=== PATIENT | male | born 1935 | race Hispanic/Latino ===

== ENCOUNTER 2017-02-09 17:16 | Inpatient (IN) | payer MEDICAID, MEDICARE, OTHER ==
[2017-02-09] MEDS ORDERED: Acetaminophen 325 MG TAB PO PRN (18:13)
[2017-02-09] MEDS ORDERED: Bisacodyl 5 MG TAB PO PRN (18:13)
[2017-02-09] MEDS ORDERED: Dextrose 5% in Water 1,000 ML IV PRN (18:16)
[2017-02-09] MEDS ORDERED: Dextrose 50% Abboject 50 ML SYRINGE SLOW IVP PRN (18:16)
[2017-02-09 18:38] LABS: Hematocrit 29.5 % (42.0-52.0); Mean Platelet Volume 8.3 fL (7.4-10.4); Red Blood Cell (RBC) Count 2.73 mill/uL (4.70-6.10); White Blood Cell (WBC) Count 6.1 thou/uL (4.8-10.8)
[2017-02-09 18:53] LABS: ALT (SGPT) 50 U/L (8-55); AST (SGOT) 32 U/L (5-34); Alkaline Phosphatase 91 U/L (40-150); Anion Gap 17 mmol/L (10-20); BUN (Urea Nitrogen) 97 mg/dL (8.4-25.7); Bilirubin, Total 0.6 mg/dL (0.2-1.2); Calc. Creatinine Clearance 0 mL/min (70-130); Calcium 9.3 mg/dL (7.8-10.44); Carbon Dioxide 20 mmol/L (23-31); Chloride 105 mmol/L (98-107); Estimated GFR-MDRD 8; Globulin 3.7 g/dL (2.4-3.5); Protein, Total 6.9 g/dL (5.8-8.1)
[2017-02-09 18:58] LABS: #Eosinphils 0.3 thou/uL (0.0-0.7); #Lymphocytes 1.1 thou/uL (1.20-3.40); #Monocytes 0.4 thou/uL (0.11-0.59); #Neutrophils 4.4 thou/uL (1.40-6.50); %Basophils 0.7 % (0.0-1.0); %Eosinophils 4.1 % (0.0-10.0); %Lymphocytes 17.3 % (21.0-51.0); %Monocytes 5.6 % (0.0-10.0)
--- NOTE | 2017-02-09 19:00 | HP ---
PRIMARY CARE PHYSICIAN: Dr. Clifford Carey. CHIEF COMPLAINT: Elevated creatinine. HISTORY OF PRESENT ILLNESS: Mr. Doran is a pleasant 81-year-old gentleman who is a resident of [facility], who was sent to the emergency room from the [facility] because of abnormal labs. He denies any chest pain or shortness of breath. He reports that he has not been eating as well as he should. He reports that he has some difficulty accessing his wash room. The patient provides conflicting history at different times, history is unreliable. Collateral history was obtained from review of medical records as well as discussion with the emergency room physician. The patient appears to have been started on clindamycin and Bactrim for cellulitis on 02/05/2017. REVIEW OF SYSTEMS: The following complete review of systems was negative, unless otherwise mentioned in the HPI or below: CONSTITUTIONAL: Weight loss or gain, sense of well-being, ability to conduct usual activities, exercise tolerance. SKIN/BREAST: Rash, itching, changes in hair growth or loss, nail changes, breast lumps, tenderness, swelling, nipple discharge. EYES: Vision, double vision, tearing, blind spots, pain. ENT/MOUTH: Headaches (location, time of onset, duration, precipitating factors) , vertigo, lightheadedness, injury. Vision, double vision, tearing, blind spots , pain, nose bleeding, colds, obstruction, discharge, dental difficulties, gingival bleeding, dentures, neck stiffness, pain, tenderness, masses in thyroid or other areas. CARDIOVASCULAR: Precordial pain, substernal distress, palpitations, syncope, dyspnea on exertion, orthopnea, nocturnal paroxysmal dyspnea, edema, cyanosis, hypertension, heart murmurs, varicosities, phlebitis, claudication. RESPIRATORY: Pain, shortness of breath, wheezing, stridor, cough, hemoptysis, fever or night sweats GASTROINTESTINAL: Poor appetite, dysphagia, indigestion, abdominal pain, heartburn, eructation, nausea, vomiting, hematemesis, jaundice, constipation, or diarrhea, abnormal stools (bobby-colored, tarry, bloody, greasy, foul smelling ), flatulence, hemorrhoids, recent changes in bowel habits. GENITOURINARY: Urgency, frequency, dysuria, nocturia, hematuria, polyuria, oliguria, unusual (or change in) color of urine, stones, hesitancy, change in size of stream, dribbling, acute retention or incontinence, libido, potency. MUSCULOSKELETAL: Pain, swelling, redness or heat of muscles or joints, limitation, of motion, muscular weakness, atrophy, cramps. NEUROLOGIC/PSYCHIATRIC: Convulsions, paralyses, tremor, incoordination, paresthesias, difficulties with memory of speech, sensory or motor disturbances , or muscular coordination (ataxia, tremor), emotional problems, anxiety, depression, previous psychiatric care, unusual perceptions, hallucinations. ALLERGY/IMMUNOLOGIC: Skin rash, anemia, bleeding tendency, polydipsia, polyuria , intolerance to heat or cold. PAST MEDICAL HISTORY: Significant for dementia, diabetes mellitus type 2, and hypertension. PAST SURGICAL HISTORY: Unable to elicit. PSYCHIATRIC HISTORY: Significant for depression and bipolar disorder. FAMILY HISTORY: Unable to elicit. CODE STATUS: I could not discuss CODE STATUS with him. This will need to be addressed. ALLERGIES: No known drug allergies. CURRENT MEDICATIONS: Include clindamycin 300 mg every 6 hours, Prozac 20 mg daily, metformin 500 mg 2 times a day, multivitamins 1 tablet daily, risperidone 0.25 mg 2 times a day, Motrin 400 mg 4 times a day for 7 days, Bactrim 1 tablet 2 times a day. PHYSICAL EXAMINATION: GENERAL: Mr. Doran is awake and alert, not in acute distress. VITAL SIGNS: Blood pressure is 139/64, pulse is 71. He is breathing at rate of 20 and saturating 96% on room air. He is afebrile. EYES: No scleral icterus. No conjunctival pallor. ENT: Dry mucosal membranes, no oropharyngeal erythema or exudates. NECK: Supple, nontender, normal range of movement, trachea is midline. RESPIRATORY: Accessory muscles of breathing are not active. Chest wall movements are symmetric bilaterally. LUNGS: Clear to auscultation without wheeze, rhonchi or crepitations. ABDOMEN: Soft, nontender, bowel sounds are heard, no hepatomegaly, no splenomegaly. NEUROLOGIC: Cranial nerves II-XII are intact. Deep tendon reflexes are 2+. SKIN: No rashes or subcutaneous nodules. Multiple tattoos present. MUSCULOSKELETAL: He has a splint over his left wrist. He reports that is for gout. Power is 5/5 in all 4 extremities. LYMPHATIC: No cervical lymphadenopathy. PSYCHIATRIC: Normal mood, normal affect, patient is oriented to person and place, not to time. Mr. Doran's labs and investigations were reviewed. Laboratory investigations were ordered by the emergency room, physician are pending. Review of the blood work from [facility] shows that on 02/08/2017, he had sodium 139, potassium 5.1, anion gap elevated at 22, decreased calcium of 8.5, elevated blood urea nitrogen of 75, elevated creatinine of 5.0, decreased albumin of 2.8 , elevated ALT of 57, normal total bilirubin, normal AST, normal alkaline phosphatase. Hemoglobin A1c was 5.6. ASSESSMENT AND PLAN: Mr. Doran is a pleasant 81-year-old gentleman, who was seen at [facility] on 02/09/2017. His problem list includes: 1. Acute renal failure: Mr. Doran appears to be presenting with acute renal failure, likely multifactorial, given his use of nonsteroidal anti-inflammatory agents and poor oral intake. Bactrim may have contributed to the elevated creatinine as well. This may have been worsened by his concomitant use of metformin. He will be admitted to the hospital. Nephrotoxic medications will be on hold. He will receive intravenous hydration. Nephrology Service is being consulted for their opinion and help with further management. 2. Dementia: Appears to be stable at this time. 3. Diabetes mellitus. Hold metformin, start Accu-Cheks and insulin sliding scale. 4. Hypertension: Monitor vital signs, titrate antihypertensives as needed. 5. History of cellulitis: This appears to have resolved. We will stop antibiotics. Many thanks for allowing me to participate in your patient's care. Please feel free to contact me with any questions or concerns. LEVEL OF RISK: Moderate. LEVEL OF COMPLEXITY: Moderate. MTDD
--- NOTE | 2017-02-09 19:37 | CON ---
DATE OF CONSULTATION: 02/09/2017 REASON FOR CONSULTATION: Elevated creatinine. HISTORY OF PRESENT ILLNESS: This is a very pleasant 81-year-old gentleman with a baseline creatinine of 1.1 in 12/12, presented to the hospital with altered mental status and a creatinine of 5. The pa herminio denies no headache, numbness, tingling or weakness. Denies any nausea, vomiting or chest pain. The patient was recently treated with clindamycin and Bactrim. The patient has had history of poor ly controlled diabetes mellitus. 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 HOME MEDICATIONS: List reviewed. HOSPITAL MEDICATIONS: List reviewed. ALLERGIES: Reviewed. FAMILY HISTORY: Negative for ESRD. SOCIAL HISTORY: No drug use. REVIEW OF SYSTEMS: Fifteen point review of systems was performed and negative except for positives n oted above. General: Weakness. Head: Headache. Neck: No swelling or lumps. Nose: No epistaxis or discharge . Eyes: No diplopia or pain. Respiratory: Dyspnea. Cardiovascular: Chest pain. Gastrointestina l: Nausea. /[employer]: Hematuria. Musculoskeletal: No joint pain. Neuropsychiatic systems: No suic idal ideation. No ideation. Skin: Denies any rash or ulcer. Constitutional: No fever or chills. PHYSICAL EXAMINATION: GENERAL: Patient is awake, alert. VITAL SIGNS: Afebrile, pulse 75, breathing at 16, blood pressure was 130/70. GENERAL APPEARANCE AND MENTAL STATUS: Fair. HEAD/NECK: Normocephalic. Atraumatic. EYES: EOMI. No deformity. EARS: Clear. No ulcers. NOSE: Intact. No lesions. MOUTH: Clear. No discharge. THROAT: Clear. No exudate. LUNGS: Clear. No crackles. CARDIAC: S1, S2. No rub. ABDOMEN: Benign. BS+. GENITALIA/RECTUM: Castellano absent. BACK/EXTREMITIES: Edema 0+ Ulcer- NEUROLOGICAL: Alert and motor intact. SKIN: Rash- Bruise- LYMPHATICS: Edema- Ulcer- LABORATORY DATA: Creatinine 5, potassium is normal. ASSESSMENT AND RECOMMENDATIONS: 1. Stage V chronic kidney disease with acute kidney failure. Would recommend hydration. Would hold Bactrim. Can use Cipro. 2. Anemia, stable. 3. Medications based on glomerular filtration rate are appropriate. No indication for dialysis at t his time. We will follow the patient's renal function closely and order renal imaging.
[2017-02-09] MEDS: Heparin 5,000 UNITS/ML VIAL SC SCH (21:21)
[2017-02-09] MEDS: Sodium Chloride 0.9% 1,000 ML IV SCH (21:21)
[2017-02-10 00:10] VITALS: BMI 27.9
[2017-02-10 05:37] LABS: #Eosinphils 0.2 thou/uL (0.0-0.7); #Monocytes 0.5 thou/uL (0.11-0.59); #Neutrophils 4.1 thou/uL (1.40-6.50); %Basophils 0.5 % (0.0-1.0); %Eosinophils 4.2 % (0.0-10.0); %Monocytes 7.8 % (0.0-10.0); Hematocrit 28.8 % (42.0-52.0); Mean Platelet Volume 8.5 fL (7.4-10.4); Red Blood Cell (RBC) Count 2.63 mill/uL (4.70-6.10); White Blood Cell (WBC) Count 5.8 thou/uL (4.8-10.8)
[2017-02-10] MEDS: Sodium Chloride 0.9% 1,000 ML IV SCH (06:38)
[2017-02-10] MEDS: Insulin Regular 300 UNITS/3 ML VIAL SC PRN (06:39)
[2017-02-10 06:45] LABS: Anion Gap 17 mmol/L (10-20); BUN (Urea Nitrogen) 84 mg/dL (8.4-25.7); Calc. Creatinine Clearance 13 mL/min (70-130); Calcium 8.6 mg/dL (7.8-10.44); Carbon Dioxide 16 mmol/L (23-31); Chloride 109 mmol/L (98-107); Estimated GFR-MDRD 9
[2017-02-10] MEDS: Heparin 5,000 UNITS/ML VIAL SC SCH ×3 (07:55→20:38)
[2017-02-10] MEDS: Albuterol Sulfate 1.25 MG/3 ML NEB NEB SCH ×2 (08:45→09:07)
[2017-02-10] MEDS ORDERED: FLU VACC TS2017-18 (>65YR) 0.5 ML SYRINGE IM ONE (09:00)
[2017-02-10] MEDS: Albuterol Sulfate 2.5 mg/3 ml Neb NEB SCH ×3 (09:25→11:49)
[2017-02-10] MEDS: Albuterol Sulfate 2.5 mg/0.5 ml Neb NEB SCH ×3 (09:25→11:48)
[2017-02-10] MEDS ORDERED: Albuterol Sulfate 1.25 MG/3 ML NEB NEB SCH (09:30)
--- NOTE | 2017-02-10 11:02 | PRG ---
DATE OF SERVICE: 02/10/2017 SUBJECTIVE: An 81-year-old gentleman being seen for acute kidney injury. The patient denies any judah sea, vomiting or chest pain. PHYSICAL EXAMINATION: GENERAL: Patient is awake and alert. VITAL SIGNS: Afebrile, pulse 111, breathing at 16, blood pressure 122/66. HEAD/NECK: Normocephalic. Atraumatic. EYES: EOMI. No deformity. EARS: Clear. No ulcers. NOSE: Intact. No lesions. MOUTH: Clear. No discharge. THROAT: Clear. No exudate. LUNGS: Clear. No crackles. CARDIAC: S1, S2. No rub. ABDOMEN: Benign. BS+. GENITALIA/RECTUM: Castellano absent. BACK/EXTREMITIES: Edema 0+ Ulcer- NEUROLOGICAL: Alert and motor intact. SKIN: Rash- Bruise- LYMPHATICS: Edema- Ulcer- LABORATORY DATA: Show hemoglobin 9.4, potassium 5.8, creatinine 5.74. ASSESSMENT AND RECOMMENDATIONS: 1. Acute kidney injury, improving. Continue hydration. 2. Metabolic acidosis. We will add sodium bicarbonate. 3. Anemia, stable. 4. Medications based on glomerular filtration rate are appropriate. No urgent indication for dialys is. I will order renal imaging.
[2017-02-10 11:28] LABS: Anion Gap 17 mmol/L (10-20); BUN (Urea Nitrogen) 78 mg/dL (8.4-25.7); Calc. Creatinine Clearance 14 mL/min (70-130); Calcium 8.9 mg/dL (7.8-10.44); Carbon Dioxide 17 mmol/L (23-31); Chloride 111 mmol/L (98-107); Estimated GFR-MDRD 11
--- NOTE | 2017-02-10 11:30 | PDOC.PN ---
- Subjective Encounter Start Date: 02/10/17 Encounter Start Time: 08:20 Pt seen for followup re: LOU. Denies chest pain, shortness of breath, fevers or chills. - Objective MAR Reviewed: Yes Vital Signs & Weight: Vital Signs (12 hours) Temp Pulse Resp BP BP Pulse Ox 02/10/17 10:43 111 H 18 97 02/10/17 09:25 106 H 18 96 02/10/17 08:00 98.4 F 106 H 18 98 02/10/17 07:56 98.4 F 106 H 18 122/66 96 02/10/17 04:00 97.4 F L 80 20 127/64 95 02/10/17 00:00 97.7 F 84 20 135/56 L 96 Weight Admit Weight 205 lb 14.576 oz Weight 205 lb 14.576 oz I&O: 02/09/17 02/10/17 02/11/17 06:59 06:59 06:59 Intake Total 1590 Output Total 1050 Balance 540 Result Diagrams: 02/10/17 04:03 02/10/17 04:03 Additional Labs: Accuchecks 02/10/17 05:44 POC Glucose 193 H Dx/Plan (1) LOU (acute kidney injury) Code(s): N17.9 - ACUTE KIDNEY FAILURE, UNSPECIFIED Status: Acute (2) Hyperkalemia Code(s): E87.5 - HYPERKALEMIA Status: Acute (3) Metabolic acidosis Code(s): E87.2 - ACIDOSIS Status: Acute (4) DM2 (diabetes mellitus, type 2) Status: Chronic (5) HTN (hypertension) Code(s): I10 - ESSENTIAL (PRIMARY) HYPERTENSION Status: Chronic (6) Dementia Code(s): F03.90 - UNSPECIFIED DEMENTIA WITHOUT BEHAVIORAL DISTURBANCE Status: Chronic - Plan PT/OT, out of bed/ambulate, DVT proph w/heparin * . Continue IV fluids. Bicarbonate added by nephrology service. Administer kayexalate, beta agonist nebs andrecheck potassium. Continue accuchecks, insulin. Monitor vital signs, titrate antihypertensives as needed. Review of Systems - Review of Systems Constitutional: Other. negative: Fever, Chills, Sweats, Weakness, Malaise Respiratory: negative: Cough, Dry, Shortness of Breath, Hemoptysis, SOB with Excertion, Pleuritic Pain, Sputum, Wheezing Cardiovascular: negative: Chest Pain, Palpitations, Orthopnea, Paroxysmal Noc. Dyspnea, Edema, Light Headedness Gastrointestinal: negative: Nausea, Vomiting, Abdominal Pain, Diarrhea, Constipation, Melena, Hematochezia Genitourinary: negative: Dysuria, Frequency, Incontinence, Hematuria, Retention - Medications/Allergies Allergies/Adverse Reactions: Allergies Allergy/AdvReac Type Severity Reaction Status Date / Time No Known Drug Allergies Allergy Verified 02/09/17 18:13 Medications: Current Medications Acetaminophen (Tylenol) 650 mg PO Q4H PRN PRN Reason: Headache/Fever or Pain Albuterol Sulfate (Ventolin) 7.5 mg NEB Q1H [facility] Stop: 02/10/17 11:31 Last Admin: 02/10/17 10:43 Dose: 7.5 mg Albuterol Sulfate (Ventolin) 2.5 mg NEB Q1H [facility] Stop: 02/10/17 11:31 Last Admin: 02/10/17 10:43 Dose: 2.5 mg Bisacodyl (Dulcolax) 10 mg PO DAILYPRN PRN PRN Reason: Constipation Dextrose/Water (Dextrose 50%) 25 gm SLOW IVP PRN PRN PRN Reason: Hypoglycemia Glucagon (Glucagon) 1 mg IM PRN PRN PRN Reason: Hypoglycemia Heparin Sodium (Porcine) (Heparin) 5,000 units SC TID [facility] Last Admin: 02/10/17 07:55 Dose: 5,000 units Dextrose/Water (D5w) 1,000 mls @ 0 mls/hr IV .Q0M PRN; As Directed PRN Reason: Hypoglycemia Sodium Bicarbonate 150 meq/ (Dextrose/Water) 1,150 mls @ 100 mls/hr IV .[id number] [facility] Insulin Human Regular (Humulin R) 0 units SC .MILD SLIDING SCALE PRN PRN Reason: Mild Correctional Scale Last Admin: 02/10/17 06:39 Dose: 2 unit
--- NOTE | 2017-02-10 14:19 | ULT ---
BILATERAL RENAL ULTRASOUND: Date: 02/10/17 HISTORY: Acute kidney insufficiency. COMPARISON: None. TECHNIQUE: Sagittal and transverse imaging of kidneys performed. FINDINGS: Bilaterally, no hydronephrosis. There is an anechoic focus in the right renal pelvis likely representing a parapelvic cyst measuring 7.2 x 6.0 x 7.3 cm. Right kidney measures 11.0 x 6.1 x 5.7 cm. Left kidney measures 11.0 x 5.2 x 6.2 cm. Urinary bladder has a pre-void volume of 272 cm2. No mucosal abnormality. IMPRESSION: 1. No hydronephrosis. 2. Right renal cyst. POS: [facility]
[2017-02-10] MEDS: Sodium Bicarbonate 150 MEQ in Dextrose 5% in Water 1,000 ML IV SCH ×2 (14:48)
[2017-02-10] MEDS: risperiDONE 0.25 MG TAB PO SCH (20:38)
[2017-02-10] MEDS ORDERED: Docusate 100 MG CAP PO PRN (21:00)
[2017-02-10] MEDS: Acetaminophen 325 MG TAB PO PRN (23:12)
[2017-02-11] MEDS: HYDROcodone/Acetaminophen 5/325 mg Tablet PO PRN ×2 (01:38→05:28)
[2017-02-11] MEDS: Sodium Bicarbonate 150 MEQ in Dextrose 5% in Water 1,000 ML IV SCH ×6 (01:38→14:53)
[2017-02-11 05:52] LABS: #Eosinphils 0.2 thou/uL (0.0-0.7); #Lymphocytes 1.2 thou/uL (1.20-3.40); #Monocytes 0.5 thou/uL (0.11-0.59); #Neutrophils 3.5 thou/uL (1.40-6.50); %Basophils 0.2 % (0.0-1.0); %Eosinophils 3.7 % (0.0-10.0); %Lymphocytes 22.5 % (21.0-51.0); %Monocytes 8.3 % (0.0-10.0); Hematocrit 25.8 % (42.0-52.0); Mean Platelet Volume 7.9 fL (7.4-10.4); Red Blood Cell (RBC) Count 2.37 mill/uL (4.70-6.10); White Blood Cell (WBC) Count 5.4 thou/uL (4.8-10.8)
[2017-02-11 06:23] LABS: Anion Gap 12 mmol/L (10-20); BUN (Urea Nitrogen) 57 mg/dL (8.4-25.7); Calc. Creatinine Clearance 20 mL/min (70-130); Calcium 8.6 mg/dL (7.8-10.44); Carbon Dioxide 25 mmol/L (23-31); Chloride 106 mmol/L (98-107); Estimated GFR-MDRD 16
[2017-02-11] MEDS: risperiDONE 0.25 MG TAB PO SCH ×2 (07:35→21:05)
[2017-02-11] MEDS: FLUoxetine HCl 20 MG CAP PO SCH (07:35)
[2017-02-11] MEDS: Heparin 5,000 UNITS/ML VIAL SC SCH ×3 (07:35→21:05)
[2017-02-11] MEDS: Multivit, Therapeutic 1 TAB PO SCH (07:35)
--- NOTE | 2017-02-11 11:37 | PDOC.PN ---
- Subjective Encounter Start Date: 02/11/17 Encounter Start Time: 09:00 Pt seen for followup re: LOU. Denies chest pain, shortness of breath, fevers or chills. - Objective MAR Reviewed: Yes Vital Signs & Weight: Vital Signs (12 hours) Temp Pulse Resp BP Pulse Ox 02/11/17 08:00 98.1 F 77 20 148/76 H 96 Weight Admit Weight 205 lb 14.576 oz Weight 205 lb 14.576 oz I&O: 02/10/17 02/11/17 02/12/17 06:59 06:59 06:59 Intake Total 3990 240 Output Total 1050 Balance 2940 240 Result Diagrams: 02/11/17 04:04 02/11/17 04:04 Additional Labs: Accuchecks 02/10/17 02/10/17 15:39 11:29 POC Glucose 268 H 166 H Phys Exam - Physical Examination Constitutional: NAD HEENT: moist MMs Neck: supple Respiratory: clear to auscultation bilateral Cardiovascular: RRR Gastrointestinal: soft Musculoskeletal: pulses present Neurological: moves all 4 limbs Psychiatric: normal affect Dx/Plan (1) LOU (acute kidney injury) Code(s): N17.9 - ACUTE KIDNEY FAILURE, UNSPECIFIED Status: Acute (2) Metabolic acidosis Code(s): E87.2 - ACIDOSIS Status: Acute (3) DM2 (diabetes mellitus, type 2) Status: Chronic (4) HTN (hypertension) Code(s): I10 - ESSENTIAL (PRIMARY) HYPERTENSION Status: Chronic (5) Dementia Code(s): F03.90 - UNSPECIFIED DEMENTIA WITHOUT BEHAVIORAL DISTURBANCE Status: Chronic (6) Hyperkalemia Code(s): E87.5 - HYPERKALEMIA Status: Resolved - Plan PT/OT, out of bed/ambulate, DVT proph w/heparin * . creatinine better. Continue IV fluids. Continue accuchecks, insulin. Monitor vital signs, titrate antihypertensives as needed. Review of Systems - Review of Systems Respiratory: negative: Cough, Dry, Shortness of Breath, Hemoptysis, SOB with Excertion, Pleuritic Pain, Sputum, Wheezing Cardiovascular: negative: Chest Pain, Palpitations, Orthopnea, Paroxysmal Noc. Dyspnea, Edema, Light Headedness - Medications/Allergies Allergies/Adverse Reactions: Allergies Allergy/AdvReac Type Severity Reaction Status Date / Time No Known Drug Allergies Allergy Verified 02/09/17 18:13 Medications: Current Medications Acetaminophen (Tylenol) 650 mg PO Q4H PRN PRN Reason: Fever/Mild Pain Last Admin: 02/10/17 23:12 Dose: 650 mg Bisacodyl (Dulcolax) 10 mg PO DAILYPRN PRN PRN Reason: Constipation Dextrose/Water (Dextrose 50%) 25 gm SLOW IVP PRN PRN PRN Reason: Hypoglycemia Docusate Sodium (Colace) 100 mg PO BID PRN PRN Reason: Constipation Fluoxetine HCl (Prozac) 20 mg PO DAILY [facility] Last Admin: 02/11/17 07:35 Dose: 20 mg Glucagon (Glucagon) 1 mg IM PRN PRN PRN Reason: Hypoglycemia Heparin Sodium (Porcine) (Heparin) 5,000 units SC TID [facility] Last Admin: 02/11/17 07:35 Dose: 5,000 units Dextrose/Water (D5w) 1,000 mls @ 0 mls/hr IV .Q0M PRN; As Directed PRN Reason: Hypoglycemia Sodium Bicarbonate 150 meq/ (Dextrose/Water) 1,150 mls @ 100 mls/hr IV .[id number] [facility] Last Admin: 02/11/17 10:18 Dose: Not Given Insulin Human Regular (Humulin R) 0 units SC .MILD SLIDING SCALE PRN PRN Reason: Mild Correctional Scale Last Admin: 02/10/17 06:39 Dose: 2 unit Multivitamins (Theragran) 1 tab PO DAILY [facility] Last Admin: 02/11/17 07:35 Dose: 1 tab Risperidone (Risperidone) 0.25 mg PO BID [facility] Last Admin: 02/11/17 07:35 Dose: 0.25 mg
--- NOTE | 2017-02-11 12:28 | PRG ---
DATE OF SERVICE: 02/11/2017 SUBJECTIVE: This is an 81-year-old gentleman being seen for acute kidney injury. The patient denies any nausea, vomiting, or chest pain. PHYSICAL EXAMINATION: GENERAL: Patient is awake, alert. VITAL SIGNS: Afebrile, pulse 70, breathing at 16, blood pressure 142/76. GENERAL APPEARANCE AND MENTAL STATUS: Fair. HEAD/NECK: Normocephalic. Atraumatic. EYES: EOMI. No deformity. EARS: Clear. No ulcers. NOSE: Intact. No lesions. MOUTH: Clear. No discharge. THROAT: Clear. No exudate. LUNGS: Clear. No crackles. CARDIAC: S1, S2. No rub. ABDOMEN: Benign. BS+. GENITALIA/RECTUM: Castellano absent. BACK/EXTREMITIES: Edema 0+ Ulcer- NEUROLOGICAL: Alert and motor intact. SKIN: Rash- Bruise- LYMPHATICS: Edema- Ulcer- LABORATORY: Hemoglobin 8.3, creatinine 3.6. ASSESSMENT AND RECOMMENDATIONS: 1. Acute kidney injury, improving. 2. Hypertension, stable. 3. Anemia, stable. 4. Medications based on GFR are appropriate. 5. Metabolic acidosis, improved. No indication for dialysis at this time.
[2017-02-12] MEDS ORDERED: hydrOXYzine 10 MG TAB PO SCH (00:30)
[2017-02-12] MEDS: Acetaminophen 325 MG TAB PO PRN (00:38)
[2017-02-12 04:50] LABS: #Eosinphils 0.2 thou/uL (0.0-0.7); #Lymphocytes 1.6 thou/uL (1.20-3.40); #Monocytes 0.3 thou/uL (0.11-0.59); #Neutrophils 3.5 thou/uL (1.40-6.50); %Basophils 0.6 % (0.0-1.0); %Eosinophils 3.9 % (0.0-10.0); %Lymphocytes 27.5 % (21.0-51.0); %Monocytes 5.6 % (0.0-10.0); Hematocrit 27.8 % (42.0-52.0); Mean Platelet Volume 7.9 fL (7.4-10.4); Red Blood Cell (RBC) Count 2.57 mill/uL (4.70-6.10); White Blood Cell (WBC) Count 5.7 thou/uL (4.8-10.8)
[2017-02-12 05:07] LABS: Anion Gap 11 mmol/L (10-20); BUN (Urea Nitrogen) 33 mg/dL (8.4-25.7); Calc. Creatinine Clearance 29 mL/min (70-130); Calcium 9.1 mg/dL (7.8-10.44); Carbon Dioxide 29 mmol/L (23-31); Chloride 104 mmol/L (98-107); Estimated GFR-MDRD 25
[2017-02-12] MEDS: Sodium Bicarbonate 75 MEQ in Dextrose 5% in Water 500 ML IV SCH ×6 (05:50→15:13)
[2017-02-12] MEDS: Heparin 5,000 UNITS/ML VIAL SC SCH ×3 (08:47→20:33)
[2017-02-12] MEDS: risperiDONE 0.25 MG TAB PO SCH ×2 (08:47→20:33)
[2017-02-12] MEDS: Multivit, Therapeutic 1 TAB PO SCH (08:47)
[2017-02-12] MEDS: FLUoxetine HCl 20 MG CAP PO SCH (08:47)
[2017-02-12] MEDS: Insulin Regular 300 UNITS/3 ML VIAL SC PRN ×2 (11:58→20:35)
--- NOTE | 2017-02-12 14:01 | PDOC.PN ---
- Subjective Encounter Start Date: 02/12/17 Encounter Start Time: 09:20 Pt seen for followup re: LOU, Feels well, no complaints. - Objective Vital Signs & Weight: Vital Signs (12 hours) Temp Pulse Resp BP Pulse Ox 02/12/17 08:00 98.0 F 82 20 138/70 95 Weight Admit Weight 205 lb 14.576 oz Weight 205 lb 14.576 oz I&O: 02/11/17 02/12/17 02/13/17 06:59 06:59 06:59 Intake Total 3990 2480 Output Total 1050 Balance 2940 2480 Result Diagrams: 02/12/17 04:07 02/12/17 04:07 Additional Labs: Accuchecks 02/12/17 02/12/17 02/11/17 11:41 05:10 20:38 POC Glucose 190 H 160 H 170 H 02/11/17 02/11/17 02/10/17 16:45 05:34 19:53 POC Glucose 169 H 144 H 165 H Phys Exam - Physical Examination Constitutional: NAD HEENT: moist MMs Neck: supple Respiratory: clear to auscultation bilateral Cardiovascular: RRR Gastrointestinal: soft Musculoskeletal: no edema Neurological: moves all 4 limbs Psychiatric: normal affect Skin: no rash Dx/Plan (1) LOU (acute kidney injury) Code(s): N17.9 - ACUTE KIDNEY FAILURE, UNSPECIFIED Status: Acute (2) DM2 (diabetes mellitus, type 2) Status: Chronic (3) HTN (hypertension) Code(s): I10 - ESSENTIAL (PRIMARY) HYPERTENSION Status: Chronic (4) Dementia Code(s): F03.90 - UNSPECIFIED DEMENTIA WITHOUT BEHAVIORAL DISTURBANCE Status: Chronic (5) Hyperkalemia Code(s): E87.5 - HYPERKALEMIA Status: Resolved (6) Metabolic acidosis Code(s): E87.2 - ACIDOSIS Status: Resolved - Plan PT/OT, out of bed/ambulate * . Creatinine improving. Obtain previous records from PCP. Continue accuchecks, insulin. Review of Systems - Review of Systems Respiratory: negative: Cough, Dry, Shortness of Breath, Hemoptysis, SOB with Excertion, Pleuritic Pain, Sputum, Wheezing Cardiovascular: negative: Chest Pain, Palpitations, Orthopnea, Paroxysmal Noc. Dyspnea, Edema, Light Headedness - Medications/Allergies Allergies/Adverse Reactions: Allergies Allergy/AdvReac Type Severity Reaction Status Date / Time No Known Drug Allergies Allergy Verified 02/09/17 18:13 Medications: Current Medications Acetaminophen (Tylenol) 650 mg PO Q4H PRN PRN Reason: Fever/Mild Pain Last Admin: 02/12/17 00:38 Dose: 650 mg Bisacodyl (Dulcolax) 10 mg PO DAILYPRN PRN PRN Reason: Constipation Dextrose/Water (Dextrose 50%) 25 gm SLOW IVP PRN PRN PRN Reason: Hypoglycemia Docusate Sodium (Colace) 100 mg PO BID PRN PRN Reason: Constipation Fluoxetine HCl (Prozac) 20 mg PO DAILY [facility] Last Admin: 02/12/17 08:47 Dose: 20 mg Glucagon (Glucagon) 1 mg IM PRN PRN PRN Reason: Hypoglycemia Heparin Sodium (Porcine) (Heparin) 5,000 units SC TID [facility] Last Admin: 02/12/17 08:47 Dose: 5,000 units Dextrose/Water (D5w) 1,000 mls @ 0 mls/hr IV .Q0M PRN; As Directed PRN Reason: Hypoglycemia Sodium Bicarbonate 75 meq/ (Dextrose/Water) 575 mls @ 100 mls/hr IV .Q5H45M [facility] Last Admin: 02/12/17 11:58 Dose: 575 mls Insulin Human Regular (Humulin R) 0 units SC .MILD SLIDING SCALE PRN PRN Reason: Mild Correctional Scale Last Admin: 02/12/17 11:58 Dose: 2 unit Multivitamins (Theragran) 1 tab PO DAILY [facility] Last Admin: 02/12/17 08:47 Dose: 1 tab Risperidone (Risperidone) 0.25 mg PO BID [facility] Last Admin: 02/12/17 08:47 Dose: 0.25 mg
[2017-02-12] MEDS: Sodium Chloride 0.45% 1,000 ML IV SCH (15:37)
--- NOTE | 2017-02-12 19:13 | PRG ---
DATE OF SERVICE: 02/12/2017 SUBJECTIVE: Patient was seen and examined at bedside and overnight events noted. Patient denies any shortness of breath or chest pain or palpitation. No history of nausea or vomiting or diarrhea or f ever or chills or cramps. OBJECTIVE: GENERAL: This is an elderly male in no apparent distress. VITAL SIGNS: Temperature 98.0, pulse 80, respiratory rate 18, blood pressure 138/70. HEENT: Atraumatic, normocephalic. Oral mucosa is moist. NECK: Supple. CARDIOVASCULAR: S1, S2 heard. Rate and rhythm regular. RESPIRATORY: Clear to auscultation. GASTROINTESTINAL: Abdomen is soft. MUSCULOSKELETAL: No tenderness. No edema. DERMATOLOGIC: No skin rash. NEUROLOGIC: Alert and awake and oriented x3. No focal neurologic deficits. Moving all the extremiti es. PSYCHIATRIC: Mood and affect normal. LABORATORY DATA: Potassium is 4.6, BUN 33, creatinine is 2.5. ASSESSMENT AND PLAN: 1. Acute kidney injury, improving. We will change IV fluids to half normal saline. 2. Acidosis, much better. Will change bicarbonate to half normal saline. 3. Hypertension, stable. 4. Anemia. 5. Plan is to change IV fluids to half normal saline, monitor renal function which is getting better . Avoid nephrotoxins, renally dose all the medicines. We will follow.
[2017-02-13] MEDS: Sodium Chloride 0.45% 1,000 ML IV SCH ×2 (04:05→14:46)
[2017-02-13] MEDS: FLUoxetine HCl 20 MG CAP PO SCH (08:11)
[2017-02-13] MEDS: Multivit, Therapeutic 1 TAB PO SCH (08:11)
[2017-02-13] MEDS: risperiDONE 0.25 MG TAB PO SCH (08:11)
[2017-02-13] MEDS: Heparin 5,000 UNITS/ML VIAL SC SCH ×2 (08:11→13:45)
[2017-02-13 08:57] LABS: Anion Gap 10 mmol/L (10-20); BUN (Urea Nitrogen) 23 mg/dL (8.4-25.7); Calc. Creatinine Clearance 35 mL/min (70-130); Calcium 8.6 mg/dL (7.8-10.44); Carbon Dioxide 26 mmol/L (23-31); Chloride 103 mmol/L (98-107); Estimated GFR-MDRD 30
--- NOTE | 2017-02-13 09:15 | PRG ---
Patient Name: RUFINA HOU Date of service: 02/13/2017 Subjective: Patient was seen and examined at bedside and overnight events noted. Patient denies any shortness of breath or chest pain or palpitation. No history of nausea or vomiting or diarrhea or fever or chills or cramps. Objective: General: This is an elderly male in no apparent distress Vital signs: Temperature 97.9, pulse 83, respirations 16, blood pressure 154/62. HEENT: Atraumatic, normocephalic. Oral mucosa is moist. Neck: Supple. Cardiovascular: S1 S2 heard. Rate and rhythm regular. Respiratory: Clear to auscultation Gastrointestinal: Abdomen is soft. Musculoskeletal: No tenderness. No edema. Dermatologic: No skin rash. Neurologic: Alert and awake and oriented X3. No focal neurologic deficits. Moving all the extremit ies. Psychiatric: Mood and affect normal. LABORATORY: No labs done today. ASSESSMENT AND PLAN: 1. Acute kidney injury was improving and repeat labs today. Continue on intravenous fluids. 2. Acidosis, much better. 3. Hypertension. 4. Chronic disease. Overall, plan is to continue on IV fluids. Repeat labs today and follow. Avoid nephrotoxins.
--- NOTE | 2017-02-13 13:25 | EKG ---
Test Reason : Blood Pressure : / mmHG Vent. Rate : 073 BPM Atrial Rate : 073 BPM P-R Int : 190 ms QRS Dur : 086 ms QT Int : 426 ms P-R-T Axes : 068 -02 024 degrees QTc Int : 469 ms Sinus rhythm with Premature atrial complexes Otherwise normal ECG Confirmed by DAKOTA CODY MD ([id number]), digital editor GIOVANNA BOOGIE ([id number] on 02/13/2017 1:25:29 PM Referred By: Confirmed By:DAKOTA CODY MD
--- NOTE | 2017-02-13 14:02 | DIS ---
DATE OF ADMISSION: 02/09/2017 DATE OF DISCHARGE: 02/13/2017 PRIMARY CARE PHYSICIAN: Clifford Carey M.D. DISCHARGE DIAGNOSIS: Acute on chronic renal failure. CONDITION OF PATIENT ON THE DAY OF DISCHARGE: Stable. I assessed Mr. Doran on the day of discharge . He denies any chest pain or shortness of breath. Vital signs are stable. S1 and S2 are heard, re gular. Lungs are clear to auscultation bilaterally. DISCHARGE MEDICATIONS: His metformin has been temporarily discontinued. Motrin has been discontinue d as well. Clindamycin has been discontinued. Otherwise, his preadmission home medications as dicta nicho on history and physical note from 02/09/2017 to be continued. HOSPITAL COURSE: Mr. Doran is a pleasant 81-year-old gentleman, who was admitted to [facility] on 02/09/2017 for acute on chronic renal insufficiency, with a creatinine of 6.62. He was seen by Nephrology Service, Dr. Edgardo Jaime. He was treated with intravenous fluids. He also received bicarbonate for acidosis. He improved clinically. His metformin continues to be on hold. Nonsteroidal anti-inflammatory agents were discontinued. He is being discharged back to the half-way in a stable condition. He will need his creatinine and electrolytes checked in approximately a week and a decision needs to be made about continuing the metformin. Please note that he is on insulin sliding scale, which needs to be continued. On the day of discharge, Mr. Doran has sodium 135, potassium 4.3, creatinine 2.10, and a bicarbonate 26. On 02/12/2017, he had a white count of 5700, hemoglobin 9, and platelet count 294,000. Many thanks for allowing me to participate in your patient's care. Please feel free to contact me wi th any questions or concerns. DISCHARGE DESTINATION: Magnified half-way. TOTAL AMOUNT OF TIME SPENT COORDINATING THIS DISCHARGE: 33 minutes.
[2017-02-13 16:29] VITALS: BP 175/85; TEMP 98.4
[2017-02-13] MEDS: Insulin Regular 300 UNITS/3 ML VIAL SC PRN (16:57)
== END 2017-02-13 17:32 | DRG 683 ==
LOC: ERS 17:16 → T4-A 19:58
PROVIDERS: ADMIT Internal Medicine; ATTEND Internal Medicine
DX: N17.9 Acute kidney failure, unspecified (principal); E87.2 Acidosis; F03.90 Unspecified dementia, unspecified severity, without behavioral disturbance, psychotic disturbance, mood disturbance, and anxiety; I12.0 Hypertensive chronic kidney disease with stage 5 chronic kidney disease or end stage renal disease; E11.22 Type 2 diabetes mellitus with diabetic chronic kidney disease; F32.9 Major depressive disorder, single episode, unspecified; F31.9 Bipolar disorder, unspecified; T39.395A Adverse effect of other nonsteroidal anti-inflammatory drugs [NSAID], initial encounter; T37.0X5A Adverse effect of sulfonamides, initial encounter; T38.3X5A Adverse effect of insulin and oral hypoglycemic [antidiabetic] drugs, initial encounter; D64.9 Anemia, unspecified; N18.5 Chronic kidney disease, stage 5; E87.5 Hyperkalemia
CPT/HCPCS: 36415; 36416; 76770; 80048; 80053; 85025; 93005; 94640; J1644; J1815; J7070; J7611

== ENCOUNTER 2017-03-07 16:58 | Emergency (ER) | payer MEDICARE ==
--- NOTE | 2017-03-07 18:23 | RAD ---
THREE VIEWS LUMBAR SPINE 03/07/17 HISTORY: Pain. Patient fell out of bed. COMPARISON: None. FINDINGS: There is fusion hardware across the left and right sacroiliac joints. Vacuum disc phenomenon at L4-L5. 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 There are degenera tive changes of posterior elements at L4-L5 and L5-S1. 5 mm of retrolisthesis of L4 upon L5. No acute fractures. Mild degenerative changes in the distal thoracic spine. Note, there are five lumbar type vertebral mindy dies. IMPRESSION: 1. No posttraumatic change. 2. Degenerative changes and surgical changes as above. POS: ARLET
[2017-03-07 19:05] LABS: #Eosinphils 0.2 thou/uL (0.0-0.7); #Lymphocytes 1.7 thou/uL (1.20-3.40); #Monocytes 0.6 thou/uL (0.11-0.59); #Neutrophils 3.6 thou/uL (1.40-6.50); %Basophils 0.8 % (0.0-1.0); %Eosinophils 2.5 % (0.0-10.0); %Lymphocytes 28.1 % (21.0-51.0); %Monocytes 9.3 % (0.0-10.0); %Neutrophils 59.3 % (42.0-75.0); Hemoglobin 9.3 g/dL (14.0-18.0); Mean Corpuscular HGB CONC 33.3 g/dL (32.0-36.0); Mean Platelet Volume 7.7 fL (7.4-10.4); Platelet Count 232 thou/uL (130-400); Red Blood Cell (RBC) Count 2.65 mill/uL (4.70-6.10)
[2017-03-07 19:10] LABS: ALT (SGPT) 15 U/L (8-55); AST (SGOT) 15 U/L (5-34); Alkaline Phosphatase 78 U/L (40-150); Anion Gap 11 mmol/L (10-20); BUN (Urea Nitrogen) 20 mg/dL (8.4-25.7); Bilirubin, Total 0.5 mg/dL (0.2-1.2); Calc. Creatinine Clearance 0 mL/min (70-130); Calcium 9.3 mg/dL (7.8-10.44); Carbon Dioxide 29 mmol/L (23-31); Chloride 105 mmol/L (98-107); Estimated GFR-MDRD 48; Globulin 3.6 g/dL (2.4-3.5); Glucose 156 mg/dL (83-110); Potassium 4.2 mmol/L (3.5-5.1); Protein, Total 6.6 g/dL (5.8-8.1); Sodium 141 mmol/L (136-145)
--- NOTE | 2017-03-07 19:26 | CT ---
EXAM: NONCONTRAST HEAD CT 03/07/17 HISTORY: Patient fell out of bed, hitting head. Posttraumatic pain. COMPARISON: None. TECHNIQUE: A noncontrast head CT is performed from skull base to skull vertex. FINDINGS: No parenchymal hemorrhage. No extra-axial hematoma. No midline shift. Basilar cisterns are patent. Age appropriate atrophy. Cortical alonso-white matter differentiation is preserved. Ventricles and sulci are patent and symmetric. Prominence of ventricular system is in keeping with th e overall degree of atrophy. Chronic small vessel ischemic change of the white matter identified. Calvarium is intact. Adequate mastoid air cell aeration. There is extensive paranasal sinus disease w ith opacification and sclerosis as well as hypertrophy suggesting a chronic process. IMPRESSION: 1. No acute intracranial process. No intracranial posttraumatic sequela. 2. Chronic sinus disease. POS: KRYSTYNAH
[2017-03-07] MEDS ORDERED: Lorazepam 1 MG TAB ONE (19:40)
== END 2017-03-07 21:49 ==
LOC: ERS 16:58
DX: M54.5 Low back pain (principal); D64.9 Anemia, unspecified; E11.9 Type 2 diabetes mellitus without complications; I10 Essential (primary) hypertension; F31.9 Bipolar disorder, unspecified; F03.90 Unspecified dementia, unspecified severity, without behavioral disturbance, psychotic disturbance, mood disturbance, and anxiety; Z79.84 Long term (current) use of oral hypoglycemic drugs; Z79.899 Other long term (current) drug therapy
CPT/HCPCS: 36415; 70450; 72100; 80053; 85025